=== PATIENT | female | born 1965 | race Caucasian/White ===

== ENCOUNTER 2016-11-01 21:15 | Inpatient (IN) | payer BC ==
[~2016-11-01] VITALS: Ht 172.7 cm; Wt 107.2 kg
[2016-11-01 21:41] LABS: HEMATOCRIT 43.3 % (36.0-46.0); MCH 29.6 PG (29.0-34.0); MCHC 32.8 G/DL (30.0-36.0); MCV 90.2 FL (83-99); MEAN PLAT.VOLUME 9.4 uM^3 (9.5-12.4); PLATELET COUNT 278 K/uL (156-360); RBC DIS.WIDTH-CV 14.3 % (11.8-14.6); RBC DIS.WIDTH-SD 47.6 % (39-53); WHITE BLOOD COUNT 9.1 K/uL (4.1-10.2)
[2016-11-01 21:49] LABS: PROTHROMBIN TIME 11.4 SEC (10.2-12.9)
[2016-11-01 21:49] LABS: CHLORIDE 104 mEq/L (99-109); POTASSIUM 3.7 mEq/L (3.7-5.4); SODIUM 141 mEq/L (136-147)
[2016-11-01 21:51] LABS: PTT 31.4 SEC (25-37)
[2016-11-01 21:51] LABS: GLUCOSE 99 mg/dL (70-99)
[2016-11-01 21:53] LABS: ANION GAP 11 MEQ/L (2-14)
[2016-11-01 21:55] LABS: GFR ESTIMATE (CALCULATED) > 59 mL/min/
[2016-11-01 21:56] LABS: UREA NITROGEN (BUN) 16 mg/dL (9-23)
[2016-11-01] MEDS ORDERED: LEXAPRO10 MG PO (22:09)
[2016-11-01] MEDS ORDERED: [UNRECOGNIZED DRUG - OTHER] PO (22:09)
[2016-11-02 04:02] VITALS: BP 150/80
[2016-11-02 08:32] VITALS: BP 123/68
[2016-11-02 11:56] VITALS: BP 129/64
[2016-11-02 15:59] VITALS: BP 113/56
[2016-11-02 22:57] VITALS: BP 130/74
[2016-11-03 08:37] VITALS: BP 121/64
[2016-11-03] MEDS ORDERED: ASPIRIN EC325 MG PO (12:05)
[2016-11-03] MEDS ORDERED: HYDROCODON-ACE1 EAC7 PO (12:05)
== END 2016-11-03 15:45 | disposition home or self-care (01) | DRG 494 ==
LOC: EDBD 21:15 → TRA 21:15 → EME 21:15 → TRA 11-02 00:40 → SDC 11-02 00:40 → 3EAST 11-02 02:57 → 2SOUTH 11-02 02:57 → ENRESERV 11-02 02:59 → 3EAST 11-02 03:57
PROVIDERS: Emergency Medicine
DX: S82.841B Displaced bimalleolar fracture of right lower leg, initial encounter for open fracture type I or II (principal); W01.0XXA Fall on same level from slipping, tripping and stumbling without subsequent striking against object, initial encounter; I34.1 Nonrheumatic mitral (valve) prolapse; Y93.02 Activity, running
CPT/HCPCS: 71010; 73600; 73610; 76000; 80048; 85027; 85610; 85730; 86900; 86901; 99281; 99285; C1713; J0330; J0690; J1100; J1170; J1885; J2250; J2270; J2405; J3010; J7030; J7120